=== PATIENT | female | born 1970 | race Two or more races ===

== ENCOUNTER 2024-09-23 10:05 | Emergency (ER) | payer MEDICAID, OTHER ==
[~2024-09-23] VITALS: Ht 154.9 cm; Wt 64.0 kg
--- NOTE | 2024-09-23 11:18 | ED.PDOC ---
History of Present Illness HPI Comments 54 year old female presents to the ED with a chief complaint of low back pain onset today. Patient states she woke up this morning, had a beer and shortly after began experiencing low back pain, RT flank pain, nausea, dysuria with burning sensation as well as frequency. Denies PMHx as well as dizziness, head ache, blurry vision, vomiting, diarrhea, constipation, hematuria. No other symptoms or modifying factors present at this time. Chief Complaint: Back Pain Time Seen by MD: 10:58 Reviewed Notes: Medications, Allergies Allergies: Coded Allergies: NO KNOWN ALLERGIES (Unverified , 09/23/24) Information Source: Patient Mode of Arrival: Ambulatory Severity: Moderate Timing: Hours Duration: Since onset Prehospital treatment: None Past Medical History PAST MEDICAL HISTORY: Denies Surgical History: Denies all surgeries [employer] History: No Pertinent [employer] History Family History Family History: Reviewed,noncontributory to illness, No family hx of Cancer, No family hx of DM, No family hx of Heart coy, No family hx of HTN, No family hx ofKidney coy, No family hx of Liver coy, No family hx of Lung coy, No family hx of Stroke Social History Smoker: Non-Smoker Alcohol: Occasionally Drugs: Denies Drug Use Lives In: Home Constitutional: denies: chills, diaphoresis, fatigue, fever, malaise, sweats, weakness, others EENTM: denies: blurred vision, double vision, ear bleeding, ear discharge, ear drainage, ear pain, ear ringing, eye pain, eye redness, hearing loss, mouth pain, mouth swelling, nasal discharge, nose bleeding, nose congestion, nose pain, photophobia, tearing, throat pain, throat swelling, voice changes, others Respiratory: denies: cough, hemoptysis, orthopnea, SOB at rest, shortness of breath, SOB with excertion, stridor, wheezing, others Cardiovascular: denies: chest pain, dizzy spells, diaphoresis, Dyspnea on exertion, edema, irregular heart beat, left arm pain, lightheadedness, palpitations, PND, syncope, others Gastrointestinal: denies: abdomen distended, abdominal pain, blood streaked bowels, constipated, diarrhea, dysphagia, difficulty swallowing, hematemesis, melena, nausea, poor appetite, poor fluid intake, rectal bleeding, rectal pain, vomiting, others Genitourinary: reports: burning, dysuria, frequency; denies: abnormal vagina bleeding, dyspareunia, flank pain, hematuria, incontinence, pain, , vagina discharge, urgency, others Neurological: denies: dizziness, fainting, headache, left sided numbness, left sided weakness, numbness, paresthesia, pre-existing deficit, right sided numbness, right sided weakness, seizure, speech problems, tingling, tremors, weakness, others Musculoskeletal: reports: back pain; denies: gout, joint pain, joint swelling, muscle pain, muscle stiffness, neck pain, others Integumetry: denies: bruises, change in color, change in hair/nails, dryness, laceration, lesions, lumps, rash, wounds, others Allergic/Immunocompromised: denies: Difficulty Healing, Frequent Infections, Hives, Itching, others Hematologic/Lymphatic: denies: anemia, blood clots, easy bleeding, easy bruising, swollen glands, others Endocrine: denies: excessive hunger, excessive sweating, excessive thirst, excessive urination, flushing, intolerance to cold, intolerance to heat, unexpl ained weight gain, unexplained weight loss, others Psychiatric: denies: anxiety, bipolar disorder, depression, hopeless, panic disorder, schizophrenia, sleepless, suicidal, others All Other Systems: Reviewed and Negative Physical Exam General Appearance: Moderate Distress HEENT: Normal ENT Inspection, Pharynx Normal, TMs Normal Neck: Full Range of Motion, Non-Tender, Normal, Normal Inspection Respiratory: Chest Non-Tender, Lungs Clear, No Accessory Muscle Use, No Respiratory Distress, Normal Breath Sounds Cardiovascular: No Edema, No JVD, No Murmur, No Gallop, Normal Peripheral Pulses, Regular Rate/Rhythm Breast Exam: Deferred Gastrointestinal: No Organomegaly, Non Tender, No Pulsatile Mass, Normal Bowel Sounds, Soft Genitalia: Deferred Pelvic: Deferred Rectal: Deferred Extremities: No calf tenderness, Normal capillary refill, Normal inspection, Normal range of motion, Non-tender, No pedal edema Musculoskeletal : Apperance: Normal Neurologic: Alert, library services dean II-XII nml as Tested, No Motor Deficits, Normal Affect, Normal Mood, No Sensory Deficits Cerebellar Function: Normal Reflexes: Normal Skin: Dry, Normal Color, Warm Peripheral Pulses: 3+ Radial (R), 3+ Radial (L) Lymphatic: No Adenopathy Was a procedure done? Was a procedure done?: No Differential Dx Considerations may include: Degenerative disc disease Musculoskeletal pain X-Ray, Labs, Meds, VS Vital Signs Date Time Temp Pulse Resp B/P (MAP) Pulse Ox O2 Delivery O2 Flow Rate FiO2 09/23/24 15:04 69 18 97 Room Air* 0 21 09/23/24 14:59 97.9 69 18 148/77 (100) 97 97.9 09/23/24 14:10 98.7 68 17 143/68 (93) 97 98.7 09/23/24 10:35 71 09/23/24 10:30 98.7 74 20 141/61 (87) 100 Current Medications Medications (Trade) Dose Ordered Sig/[place] Route Start Time Stop Time Status Last Admin Ketorolac Tromethamine (Toradol Injection) 60 mg ONCE ONCE IM 09/23/24 12:00 09/23/24 12:01 DC 09/23/24 15:06 Patient alert. Complaining of back pain. Vitals stable. Answering all questions. No trauma. Ambulating. Was given pain medication. X-ray does show degeneration. Was given prescription of Motrin. Was told to follow up with her primary care physician. Was told to come back if there is any problem. Time of 1ST Reevaluation: 11:28 Reevaluation 1ST: Unchanged Patient Education/Counseling: Diagnosis, Treatment, Prognosis Family Education/Counseling: No Family Present Additional Information I reviewed the following notes from patient's past medical encounters: The following tests were ordered, and results were reviewed by me: EKG, XY LUMBAR SPINE 4+ VIEW, UA, XY LUMBAR SPINE 3 VIEW I reviewed and agreed with the following test results read by other providers: XY LUMBAR SPINE 4+ VIEW, UA, XY LUMBAR SPINE 3 VIEW I discussed treatment and results with medical personnel and: patient Departure 1 Departure Time of Disposition: 12:04 Impression: Primary Impression: Musculoskeletal pain Disposition: 01 HOME / SELF CARE / HOMELESS Condition: Good Discharged With: Self Critical Care Note Critical Care Time?: No Stability Stability form required: No Heart Score Heart Score: Heart Score Response (Comments) Value History N/A 0 EKG N/A 0 Age N/A 0 Risk Factors N/A 0 Troponin N/A 0 Total 0 I personally scribed for MATI CHAN MD ([email or web address]) on 09/23/24 at 11:18. Electronically submitted by Alisa Lima ([email or web address]). I personally scribed for MATI CHAN MD ([email or web address]) on 09/23/24 at 15:10. Electronically submitted by Alisa Lima ([email or web address]). MATI CHAN MD Sep 23, 2024 11:18
--- NOTE | 2024-09-23 12:14 | DVH ---
INDICATION: degen COMPARISON: None TECHNIQUE: 3 views of the lumbar spine were obtained. FINDINGS: There is grade 1 anterolisthesis at L5-S1. There is intervertebral disc degeneration at L5-S1. The intervertebral disc spaces are otherwise timoteo ntained. No acute fracture, vertebral compression deformity or aggressive osseous lesions. The paravertebral soft tissues are grossly unremarkable. IMPRESSION: 1. No acute fracture. 2. Intervertebral disc degeneration at L5-S1. Grade 1 anterolisthesis at L5-S1.
[2024-09-23 14:59] VITALS: BP 148/77; TEMP 97.9
[2024-09-23 15:04] VITALS: PULSE 69; RESP 18; O2SAT 97
[2024-09-23] MEDS: KETOROLAC TROMETH 60MG/2ML VIAL IM ONE (15:06)
--- NOTE | 2024-09-23 17:56 | ECG ---
[facility] Test Date: 2024-09-23 Test Time: 10:35:38 Pat Name: ROLDAN ZUÑIGA Department: ER Room: Gender: F Embalmer/Funeral Director: VINITA : 1970 Requested By: EMERGENCY EMERGENCY Order Number: [id number] Reading MD: Herson Bliss Measurements Intervals [place] Rate: 71 P: 52 IA: 164 QRS: 62 QRSD: 79 T: 68 QT: 388 QTc: 422 Interpretive Statements Sinus rhythm Electronically Signed On 09-23-2024 18:29:36 PST by Herson Bliss Please click the below link to view image of tracing.
== END 2024-09-23 15:17 | disposition home or self-care (01) ==
LOC: ER 10:05
DX: M54.59 Other low back pain (principal); R11.0 Nausea; R30.0 Dysuria; R20.8 Other disturbances of skin sensation; Z79.899 Other long term (current) drug therapy
CPT/HCPCS: 72100; 93005; 96372; 99283; J1885